=== PATIENT | male | born 1995 | race American Indian/Alaskan Native ===

== ENCOUNTER 2018-08-15 18:43 | Emergency (ER) | payer SELFPAY ==
[2018-08-15 19:10] VITALS: BP 162/76
[2018-08-15] MEDS ORDERED: NACL 0.9% 1000 ML 1,000 ML IV ONE (22:24)
[2018-08-15] MEDS ORDERED: ZOFRAN IV ONE (22:24)
--- NOTE | 2018-08-15 22:25 | Emergency Department Report ---
ED N/V/D HPI - General Chief complaint: Abdominal Pain Stated complaint: ABD PAIN/VOMITING/DIARRHEA Time Seen by Provider: 08/15/18 22:14 Source: patient Mode of arrival: Ambulatory Limitations: No Limitations - History of Present Illness Initial comments: 22-year-old -[place] male comes in complaining of epigastric pain and. PeriUmbilicus pain with nausea, vomiting and loose stool. Patient denies any fever or chills. Patient reports new food. He does report that his brother has the same issues. MD complaint: nausea, vomiting, diarrhea, abdominal pain -: days(s) (5) Description of Vomiting: food contents Description of Diarrhea: other (loose) Associated Abdominal Pain: Yes (epigastric pain and periUmbilicus) Location: diffuse, periumbillcal, epigastric Pain Scale: 5 Quality: cramping Consistency: intermittent Improves with: none Worsens with: none Context: possible food poisoning Associated Symptoms: nausea/vomiting. denies: fever/chills - Related Data Previous Rx's Medication Instructions Recorded Last Taken Type Ondansetron [Zofran Odt] 4 mg PO Q8HR #6 tab.rapdis 08/16/18 Unknown Rx Allergies Allergy/AdvReac Type Severity Reaction Status Date / Time No Known Allergies Allergy Unverified 08/15/18 19:10 ED Review of Systems ROS: Stated complaint: ABD PAIN/VOMITING/DIARRHEA Other details as noted in HPI Comment: All other systems reviewed and negative Gastrointestinal: abdominal pain, nausea, vomiting, diarrhea ED Past Medical Hx - Past Medical History Previous Medical History?: No - Surgical History Past Surgical History?: No - Social History Smoking Status: Never Smoker Substance Use Type: Alcohol, Marijuana - Medications Home Medications: Home Medications Medication Instructions Recorded Confirmed Last Taken Type Ondansetron [Zofran Odt] 4 mg PO Q8HR #6 tab.rapdis 08/16/18 Unknown Rx ED Physical Exam - General Limitations: No Limitations General appearance: alert, in no apparent distress - Head Head exam: Present: atraumatic, normocephalic - ENT ENT exam: Present: mucous membranes moist - Respiratory Respiratory exam: Present: normal lung sounds bilaterally. Absent: respiratory distress - Cardiovascular Cardiovascular Exam: Present: regular rate, normal rhythm. Absent: systolic murmur, diastolic murmur, rubs, gallop - GI/Abdominal GI/Abdominal exam: Present: soft, tenderness (epigastric and umbilicus). Absent: distended - Neurological Exam Neurological exam: Present: alert, oriented X3 - Psychiatric Psychiatric exam: Present: normal affect, normal mood - Skin Skin exam: Present: warm, dry, intact, normal color. Absent: rash ED Course Vital Signs 08/15/18 19:07 Temperature 98.6 F Pulse Rate 99 H Respiratory 18 Rate Blood Pressure 162/76 O2 Sat by Pulse 98 Oximetry - Reevaluation(s) Reevaluation #1: 08/16/18 01:21 Patient reports he feels much better after half of fluids. He's been able to hold down one cup of ice water is working on a second cup. ED Medical Decision Making - Lab Data Result diagrams: 08/15/18 22:49 08/15/18 22:49 - Medical Decision Making Patient has been evaluated by this provider in fast track. IV insertion ordered, CBC, CMP, lipase and urinalysis. Zofran 4 mg IV and normal saline 1 L. Critical care attestation.: If time is entered above; I have spent that time in minutes in the direct care of this critically ill patient, excluding procedure time. ED Disposition Clinical Impression: Nausea vomiting and diarrhea Disposition: DC-01 TO HOME OR SELFCARE Is pt being admited?: No Does the pt Need Aspirin: No Condition: Stable Instructions: Acute Nausea and Vomiting (ED), Gastroenteritis (ED) Additional Instructions: Please take Zofran as needed for nausea and vomiting. Please increase her fluid intake eventually diet as tolerated. If his symptoms persist please follow up with her primary care provider. Prescriptions: Ondansetron [Zofran Odt] 4 mg PO Q8HR #6 tab.rapdis Referrals: MARIBELL GARCIA MD [Primary Care Provider] - 3-5 Days [facility] [Provider Group] - 3-5 Days Forms: Work/School Release Form(ED), Accompanied Note
[2018-08-15 23:11] LABS: Basophils # (Auto) 0.1 K/mm3 (0.0-0.1); Basophils % (Auto) 1.3 % (0.0-1.8); Eosinophils % (Auto) 0.4 % (0.0-4.3); Hematocrit 47.7 % (35.5-45.6); Hemoglobin 15.8 gm/dl (11.8-15.2); Lymphocytes # (Auto) 3.3 K/mm3 (1.2-5.4); Lymphocytes % (Auto) 34.2 % (13.4-35.0); Mean Corpuscular HGB Conc 33 % (32-34); Mean Corpuscular Volume 75 fl (84-94); Monocytes # (Auto) 0.6 K/mm3 (0.0-0.8); Monocytes % (Auto) 6.1 % (0.0-7.3); Platelet Count 292 K/mm3 (140-440); Red Blood Count 6.34 M/mm3 (3.65-5.03); Red Cell Distribution Width 13.4 % (13.2-15.2)
[2018-08-16 00:54] LABS: Albumin 4.7 g/dL (3.9-5); BUN/Creatinine Ratio 12; Blood Urea Nitrogen 12 mg/dL (9-20); Calcium 9.3 mg/dL (8.4-10.2); Hemolysis Index 100
[2018-08-16 01:54] LABS: Alanine Aminotransferase 20 units/L (7-56)
== END 2018-08-16 01:25 | disposition home or self-care (01) ==
LOC: ED 18:43
DX: R11.2 Nausea with vomiting, unspecified (principal); R19.7 Diarrhea, unspecified; R10.33 Periumbilical pain
CPT/HCPCS: 36415; 80053; 83690; 85025; 96360; 96361; 99283; J2405; J7030; 96374